=== PATIENT | female | born 1930 | race Caucasian/White ===

== ENCOUNTER 2016-05-15 19:20 | Emergency (ER) | payer MEDICARE, BC ==
[2016-05-15 20:30] LABS: Hematocrit 36 % (35-47); Hemoglobin 12.2 g/dl (12.0-16.0); Mean Corpuscular HGB Conc 34 g/dl (31-36); Mean Corpuscular Hemoglobin 31 pg (27-31); Mean Corpuscular Volume 93 fL (80-97); Mean Platelet Volume 7 um3 (7.4-10.4); Red Blood Count 3.91 10^6/ul (4.0-5.4); Red Cell Distribution Width 13 % (10.5-15); White Blood Count 6.9 10^3/ul (3.5-10.8)
--- NOTE | 2016-05-15 20:33 | ED ---
Neftali Pierce Erika, scribed for Jorge Alexander MD on 05/15/16 at 1922 . Complex/Multi-Sys Presentation - HPI Summary HPI Summary: Patient is an 85-year-old female BIBA to the ED with a CC of possible hyponatremia. Pt lives at [facility], and the doctor there stated that patient had a sodium level of 122, so sent her to the ED. Per [facility], pt intermittently had AMS today. EMS reports that patient was asymptomatic when they arrived, but became increasingly lethargic en route. They report that patient uses 2L home O2 , but was 90-96% on 2L en route so EMS increased O2 to 4L. Patient currently denies feeling sick, but states she feels "uneasy." She states she has been eating today. Pt reports pain in both shoulders, unchanged from baseline. hx scapula and femur Fx years ago with residual pain. - History Of Current Complaint Time Seen by Provider: 05/15/16 19:20 Hx Obtained From: Patient Onset/Duration: Gradual Onset, Lasting Hours, Still Present Timing: Constant Severity Currently: Moderate Associated Signs And Symptoms: Positive: Other - lethargic - Allergies/Home Medications Allergies/Adverse Reactions: Allergies Allergy/AdvReac Type Severity Reaction Status Date / Time Codeine Allergy Intermediate Anxiety Verified 03/22/15 12:17 Sulfa Drugs Allergy Intermediate Blisters Verified 03/22/15 12:17 Adhesive Tape Allergy Mild Rash Verified 03/22/15 12:17 Penicillin G Allergy Mild Rash Verified 03/22/15 12:17 Ibuprofen Allergy Unknown Unknown Verified 03/22/15 12:17 Reaction Details PMH/Surg Hx/FS Hx/Imm Hx Endocrine/Hematology History: Reports: Hx Thyroid Disease Denies: Hx Sickle Cell Disease Cardiovascular History: Reports: Hx Hypercholesterolemia, Hx Hypertension, Other Cardiovascular Problems/Disorders - Aortic Stenosis Respiratory History: Reports: Hx Asthma - ROUTINE INHALER Denies: Other Respiratory Problems/Disorders History: Denies: Other Problems/Disorders Musculoskeletal History: Reports: Hx Arthritis, Hx Bursitis - HX OF, Hx Tendonitis - HX OF, Other Musculoskeletal History - Pt uses wheelchair Sensory History: Reports: Hx Cataracts - LUCERO, Hx Contacts or Glasses - READING GLASSES, Hx Glaucoma - Hx of Denies: Hx Hearing Aid Opthamlomology History: Reports: Hx Cataracts - LUCERO, Hx Contacts or Glasses - READING GLASSES, Hx Glaucoma - Hx of Neurological History: Reports: Other Neuro Impairments/Disorders - FIBROMYALGIA Psychiatric History: Reports: Hx Anxiety - ON MEDICATION FOR, Hx Depression - Surgical History Surgery Procedure, Year, and Place: BILATERAL CARPAL TUNNEL SURGERY- 1987. GLAUCOMA - 2001. GALLBLADDER - 2002. LEFT SHOULDER - 2010. RIGHT SHOULDER- 2011-[facility]. RIGHT ELBOW 02/15/15, [facility]. RIGHT SHOULDER- 2012-[facility]. R Knee Hx Anesthesia Reactions: No - Family History Known Family History: Positive: Other - [place] - Social History [facility]: [facility] Alcohol Use: None Hx Substance Use: No Substance Use Type: Reports: None Hx Tobacco Use: No Smoking Status (MU): Never Smoked Tobacco Have You Smoked in the Last Year: No Review of Systems Constitutional: Other - hyponatremia Positive: Fatigue Positive: Myalgia - bilateral shoulders Neurological: Other - Intermittent AMS per Amelia All Other Systems Reviewed And Are Negative: Yes Physical Exam Triage Information Reviewed: Yes Vital Signs On Initial Exam: Initial Vital Signs Temp 97.7 F 05/15/16 19:25 Pulse 96 05/15/16 19:25 Resp 18 05/15/16 19:25 BP 158/63 05/15/16 19:25 Pulse Ox 97 05/15/16 19:25 Vital Signs Reviewed: Yes Appearance: Positive: Well-Appearing, No Pain Distress Skin: Positive: Warm Eyes: Positive: EOMI, JAVED ENT: Positive: Hearing grossly normal Neck: Positive: Supple Respiratory/Lung Sounds: Positive: Clear to Auscultation, Breath Sounds Present Cardiovascular: Positive: RRR Abdomen Description: Positive: Nontender, No Organomegaly, Soft Bowel Sounds: Positive: Present Musculoskeletal: Positive: Strength/ROM Intact Neurological: Positive: Sensory/Motor Intact, Alert, Oriented to Person Place, Time Psychiatric: Positive: Affect/Mood Appropriate Diagnostics - Vital Signs Vital Signs Temp Pulse Resp BP Pulse Ox 05/15/16 19:25 97.7 F 96 18 158/63 97 - Laboratory Lab Results: Lab Results 05/15/16 Range/Units 20:20 WBC 6.9 (3.5-10.8) 10^3/ul RBC 3.91 L (4.0-5.4) 10^6/ul Hgb 12.2 (12.0-16.0) g/dl Hct 36 (35-47) % MCV 93 (80-97) fL MCH 31 (27-31) pg MCHC 34 (31-36) g/dl RDW 13 (10.5-15) % Plt Count 223 (150-450) 10^3/ul MPV 7 L (7.4-10.4) um3 Neut % (Auto) 64.9 (38-83) % Lymph % (Auto) 19.6 L (25-47) % Summers % (Auto) 11.8 H (1-9) % Eos % (Auto) 3.3 (0-6) % Baso % (Auto) 0.4 (0-2) % Absolute Neuts (auto) 4.5 (1.5-7.7) 10^3/ul Absolute Lymphs (auto) 1.4 (1.0-4.8) 10^3/ul Absolute Monos (auto) 0.8 (0-0.8) 10^3/ul Absolute Eos (auto) 0.2 (0-0.6) 10^3/ul Absolute Basos (auto) 0 (0-0.2) 10^3/ul Absolute Nucleated RBC 0 10^3/ul Nucleated RBC % 0 Result Diagrams: 05/15/16 20:20 05/15/16 20:20 Lab Statement: Any lab studies that have been ordered have been reviewed, and results considered in the medical decision making process. - Radiology CXR Radiology Interpretation Completed By: Radiologist - Report: Severe obesity limits assessment. Low lung volumes with crowding of the pulmonary markings/ subsegmental atelectasis. Linear atelectasis at the LEFT lung base. Grossly clear pleural spaces. Negative for pneumothorax. Cardiomegaly. Unremarkable central pulmonary vasculature. Bilateral shoulder prostheses. IMPRESSION: Low lung volumes for this patient with subsegmental atelectasis. Cardiomegaly without compelling evidence for pulmonary edema. - EKG 19:55 Cardiac Rate: NL - at 84 bpm EKG Rhythm: Sinus Rhythm ST Segment: Non-Specific Re-Evaluation - Re-Evaluation First Eval Re-Evaluation Time: 21:48 Change: Improved Comment: Discussed lab results and discharge Complex Multi-Symp Course/Dx Assessment/Plan: An 85 y/o F presents to the ED with a CC of possible hyponatremia, per doctor at [facility]. Blood work reveals a sodium of 126. CXR shows low lung volumes for this patient with subsegmental atelectasis and cardiomegaly without compelling evidence for pulmonary edema. EKG shows NSR with non-specific ST changes. Patient will be discharged back to [facility]. - Diagnoses Provider Diagnoses: Hyponatremia Discharge - Discharge Plan Condition: Stable Disposition: HOME Patient Education Materials: Hyponatremia (ED) Referrals: Jenaro Byrd MD [Primary Care Provider] - Additional Instructions: Please follow up with your PCP The documentation as recorded by the Neftali gomez Erika accurately reflects the service I personally performed and the decisions made by , Jorge Alexander MD.
[2016-05-15 20:46] LABS: Troponin I 0.01 ng/mL (<0.04)
--- NOTE | 2016-05-15 20:50 | RAD ---
Indication: Altered mental status, weakness. Respiratory disease/asthma. Comparison: April 12, 2013 Technique: Sitting AP and lateral chest views. Report: Severe obesity limits assessment. Low lung volumes with crowding of the pulmonary markings/subsegmental atelectasis. Linear atelectasis at the LEFT lung base. Grossly clear pleural spaces. Negative for pneumothorax. Cardiomegaly. Unremarkable central pulmonary vasculature. Bilateral shoulder prostheses. IMPRESSION: Low lung volumes for this patient with subsegmental atelectasis. Cardiomegaly without compelling evidence for pulmonary edema.
[2016-05-15 20:55] LABS: Albumin 3.9 g/dL (3.2-5.2); BUN/Creatinine Ratio 30.2 (8-20); Calcium 9.3 mg/dL (8.6-10.3); EGFR Non-African American 109.6 (>60); Potassium 4.5 mmol/L (3.5-5.0); Total Bilirubin 0.2 mg/dL (0.2-1.0); Total Protein 6.9 g/dL (6.4-8.9)
[2016-05-15 21:11] LABS: Urine Bacteria Absent (Absent); Urine Bilirubin Negative (Negative); Urine Glucose Negative (Negative); Urine Nitrite Negative (Negative)
[2016-05-15 21:24] LABS: Magnesium 1.9 mg/dL (1.9-2.7)
[2016-05-15 22:57] VITALS: BP 123/59
== END 2016-05-15 23:03 | disposition home or self-care (01) ==
LOC: ED 19:20
DX: E87.1 Hypo-osmolality and hyponatremia (principal); J45.909 Unspecified asthma, uncomplicated; F41.9 Anxiety disorder, unspecified; E78.00 Pure hypercholesterolemia, unspecified; I10 Essential (primary) hypertension; I35.0 Nonrheumatic aortic (valve) stenosis; Z88.5 Allergy status to narcotic agent; Z88.0 Allergy status to penicillin; Z88.2 Allergy status to sulfonamides
CPT/HCPCS: 36415; 71020; 80053; 81003; 81015; 83735; 83880; 84484; 85025; 87086; 93005; 99282

== ENCOUNTER 2016-06-30 16:29 | Inpatient (IN) | payer MEDICARE, BC ==
[2016-06-30] MEDS ORDERED: Diltiazem IV* 5 MG/ML 5 ML VIAL (for loading dose/IV Push) (25 MG) IV SLOW PU ONE (17:06)
[2016-06-30] MEDS ORDERED: Diltiazem IV VIAL* 125 MG in D5W 100 ML BAG* 100 ML IV ONE (17:10)
[2016-06-30 17:27] LABS: FIO2 100
[2016-06-30 17:31] LABS: PCO2 Arterial 72 mmHg (35-45)
[2016-06-30 17:39] LABS: Hematocrit 35 % (35-47); Hemoglobin 11.9 g/dl (12.0-16.0); Mean Corpuscular HGB Conc 34 g/dl (31-36); Mean Corpuscular Hemoglobin 31 pg (27-31); Mean Corpuscular Volume 91 fL (80-97); Mean Platelet Volume 8 um3 (7.4-10.4); Red Blood Count 3.86 10^6/ul (4.0-5.4); Red Cell Distribution Width 13 % (10.5-15); White Blood Count 8.1 10^3/ul (3.5-10.8)
[2016-06-30 17:51] LABS: Albumin 3.5 g/dL (3.2-5.2); BUN/Creatinine Ratio 30.2 (8-20); Calcium 8.5 mg/dL (8.6-10.3); EGFR African American 179.5 (>60); EGFR Non-African American 139.6 (>60); Globulin 2.7 g/dL (2-4); Potassium 4.3 mmol/L (3.5-5.0); Total Bilirubin 0.3 mg/dL (0.2-1.0); Total Protein 6.2 g/dL (6.4-8.9)
[2016-06-30 17:57] LABS: Troponin I 0.07 ng/mL (<0.04)
--- NOTE | 2016-06-30 17:59 | RAD ---
Indication: Pneumonia, CHF. Single frontal view of the chest performed at 1710 hours was reviewed. Comparison is made with previous exam dated May 15, 2016. Cardiomegaly. No mediastinal shift is noted. Bilateral shoulder replacement. Poor inspiratory effort. IMPRESSION: NO ACTIVE CARDIOPULMONARY DISEASE IS NOTED.
[2016-06-30] MEDS ORDERED: Iohexol 350* (CONTRAST) 500 ML MDV IV ONE (18:05)
--- NOTE | 2016-06-30 18:53 | RAD ---
Indication: Atrial fibrillation, shortness of breath. Contrast: Administered 64.3 ml of OMNIPAQUE 350 mg/ml CTA of the chest was performed after IV contrast administration. Coronal and sagittal reconstructed images were obtained. The pulmonary arterial tree is well opacified. There are no filling defects present to suggest pulmonary embolus. Aorta demonstrates no evidence of aortic dissection. Atherosclerosis is noted with multiple levels of intimal calcifications. The trachea and major bronchi appear patent. The lung hoffman demonstrate dependent changes with bibasilar atelectasis. No evidence of alveolar consolidation is noted. The visualized abdominal organs are grossly unremarkable. No abnormal masses or fluid collections are identified. IMPRESSION: No evidence of pulmonary embolus is noted. Bibasilar atelectasis.
--- NOTE | 2016-06-30 20:04 | ED ---
I, DoctorPadmini, scribed for Curt Guillen MD on 06/30/16 at 1656 . Shortness of Breath - HPI Summary HPI Summary: 85 year old female brought to [facility] by EMS c/o SOB for the past few days. Pt indicates that her SOB is worse when sitting up; she has also been experiencing photophobia. She denies any CP, cough, fever, or difficulty speaking. She also has increased swelling in her legs that is not significantly different than baseline; pt denies any leg pain. She has PMHx of aortic stenosis and COPD; she uses oxygen constantly at home (2L). She has no PMHx of blood clots. - History of Current Complaint Chief Complaint: EDRespiratoryDistress Time Seen by Provider: 06/30/16 16:50 Hx Obtained From: Patient Onset/Duration: Gradual Onset Current Severity: Moderate Alleviating Factors: Upright Position - Allergy/Home Medications Allergies/Adverse Reactions: Allergies Allergy/AdvReac Type Severity Reaction Status Date / Time Codeine Allergy Intermediate Anxiety Verified 03/22/15 12:17 Sulfa Drugs Allergy Intermediate Blisters Verified 03/22/15 12:17 Adhesive Tape Allergy Mild Rash Verified 03/22/15 12:17 Penicillin G Allergy Mild Rash Verified 03/22/15 12:17 Ibuprofen Allergy Unknown Unknown Verified 03/22/15 12:17 Reaction Details Home Medications: Home Medications Acetaminophen TAB* [Tylenol TAB*] 650 mg PO DAILY@0630 PRN 06/30/16 [History Confirmed 06/30/16] Atorvastatin* [Lipitor*] 20 mg PO BEDTIME 06/30/16 [History Confirmed 06/30/16] Betaxolol-S 0.25%* [Betoptic-S 0.25%*] 1 drop BOTH EYES BID 06/30/16 [History Confirmed 06/30/16] Budesonide NEB* [Pulmicort NEB*] 0.25 mg INH BEDTIME 06/30/16 [History Confirmed 06/30/16] Cyclobenzaprine TAB* [Flexeril 10 MG TAB*] 5 mg PO BID PRN 06/30/16 [History Confirmed 06/30/16] Ferrous Sulfate TAB* 325 mg PO DAILY 06/30/16 [History Confirmed 06/30/16] Latanoprost 0.005%* [Xalatan 0.005%*] 1 drop BOTH EYES BEDTIME 06/30/16 [ History Confirmed 06/30/16] LoraTADine TAB(NF) [Claritin 10 MG TAB(NF)] 10 mg PO DAILY 06/30/16 [History Confirmed 06/30/16] Magnesium Hydroxide LIQ* [Milk of Magnesia LIQ*] 30 ml PO DAILY PRN 06/30/16 [ History Confirmed 06/30/16] Metoprolol Succinate XL TAB* [Toprol XL TAB*] 25 mg PO DAILY 06/30/16 [History Confirmed 06/30/16] Saline NASAL SPRAY 0.65%* [Sodium Chloride 0.65% Nasal [place]*] 2 spray BOTH NARES TID 06/30/16 [History Confirmed 06/30/16] Torsemide TAB* [Demadex*] 20 mg PO ONCE PRN 06/30/16 [History Confirmed 06/30/16 ] guaiFENesin ER TAB [Mucinex*] 600 mg PO BID 06/30/16 [History Confirmed 06/30/16 ] PMH/Surg Hx/FS Hx/Imm Hx Endocrine/Hematology History: Reports: Hx Thyroid Disease Denies: Hx Sickle Cell Disease Cardiovascular History: Reports: Hx Hypercholesterolemia, Hx Hypertension, Other Cardiovascular Problems/Disorders - Aortic Stenosis Respiratory History: Reports: Hx Asthma - ROUTINE INHALER Denies: Other Respiratory Problems/Disorders History: Denies: Other Problems/Disorders Musculoskeletal History: Reports: Hx Arthritis, Hx Bursitis - HX OF, Hx Tendonitis - HX OF, Other Musculoskeletal History - Pt uses wheelchair Sensory History: Reports: Hx Cataracts - LUCERO, Hx Contacts or Glasses - READING GLASSES, Hx Glaucoma - Hx of Denies: Hx Hearing Aid Opthamlomology History: Reports: Hx Cataracts - LUCERO, Hx Contacts or Glasses - READING GLASSES, Hx Glaucoma - Hx of Neurological History: Reports: Other Neuro Impairments/Disorders - FIBROMYALGIA Psychiatric History: Reports: Hx Anxiety - ON MEDICATION FOR, Hx Depression - Surgical History Surgery Procedure, Year, and Place: BILATERAL CARPAL TUNNEL SURGERY- 1987. GLAUCOMA - 2001. GALLBLADDER - 2002. LEFT SHOULDER - 2010. RIGHT SHOULDER- 2011-[facility]. RIGHT ELBOW 02/15/15, [facility]. RIGHT SHOULDER- 2012-[facility]. R Knee Hx Anesthesia Reactions: No Infectious Disease History: No Infectious Disease History: Denies: Traveled Outside the [place] in Last 30 Days - Family History Known Family History: Positive: Other - [place] - Social History Occupation: Retired Lives: Assisted Living - [facility] Alcohol Use: None Hx Substance Use: No Substance Use Type: Reports: None Hx Tobacco Use: No Smoking Status (MU): Never Smoked Tobacco Have You Smoked in the Last Year: No Review of Systems Negative: Fever Positive: Photophobia Negative: Chest Pain Positive: Shortness Of Breath. Negative: Cough Positive: Edema - bilateral lower extremity edema. Negative: Myalgia - no leg pain All Other Systems Reviewed And Are Negative: Yes Physical Exam - Summary Physical Exam Summary: General appearance: well appearing, NAD, normal development, good nutrition, normal body habitus, well groomed HEENT: normocephalic, atraumatic, ears and nose without masses or lesions, both TMs okay, dry oral mucosa, photophobia, no rhinorrhea Neck: symmetric without masses or tracheal deviation, no thyromegaly, no neck vein distention Chest: moderate SOB, intercostal retractions Cardiovascular: good color, warmth, and capillary refill in extremities (2s), good pulses distally, marked edema on lower extremities, right thigh swollen and hard, increased skin turgor; tachycardic, irregular beat, no carotid bruit Skin: no visible rashes, lesions, or ulcers, no cyanosis Neurological/Psychiatric: good fine motor coordination, sensation intact to light touch distally, cranial nerves II-XII grossly intact, appropriate judgment and insight, oriented to time, place and person, normal mood and affect Triage Information Reviewed: Yes Vital Signs On Initial Exam: Initial Vitals Temp Pulse Resp BP Pulse Ox 97.5 F 141 30 153/99 99 06/30/16 16:44 06/30/16 16:44 06/30/16 16:44 06/30/16 16:44 06/30/16 16:44 Vital Signs Reviewed: Yes Diagnostics - Vital Signs Vital Signs Temp Pulse Resp BP Pulse Ox 06/30/16 16:44 97.5 F 141 30 153/99 99 - Laboratory Lab Results: (17:19) Troponin I - 0.07 Result Diagrams: 06/30/16 17:19 06/30/16 17:19 Lab Statement: Any lab studies that have been ordered have been reviewed, and results considered in the medical decision making process. - Radiology CXR Radiology Interpretation Completed By: Radiologist - IMPRESSION: NO ACTIVE CARDIOPULMONARY DISEASE IS NOTED. - CT Chest/Thorax CTA CT Interpretation Completed By: Radiologist - IMPRESSION: No evidence of pulmonary embolus is noted. Bibasilar atelectasis. - EKG 1659 Cardiac Rate: Tachycardia - 144 bpm EKG Rhythm: Atrial Fibrillation EKG Interpretation: AFib with rapid ventricular response Re-Evaluation - Re-Evaluation First Eval Re-Evaluation Time: 17:17 Change: Unchanged Comment: Discussed EKG results and plan for treatment with pt and daughter; CXR Pending, CTA Chest ordered to r/o PE Second Eval Re-Evaluation Time: 19:02 Change: Unchanged - Discussed CTA results and treatment options with pt Course/Dx - Diagnoses Differential Diagnosis/HQI/PQRI: Positive: CHF, COPD Exacerbation, ND, Pulmonary Embolism, Other - new onset a-fb, hyponatremia Provider Diagnoses: Acute dyspnea, COPD exacerbation, Hyponatremia, Atrial fibrillation with RVR - Physician Notifications Discussed Care of Patient With: 19:40 - Discussed care of pt with Dr. Tripathi (Hospitalist), he agrees to see pt and admit her. - Critical Care Time Critical Care Time: 30-74 min - 30 minutes Discharge - Discharge Plan Condition: Guarded Disposition: ADMITTED TO [facility] Referrals: Jenaro Byrd MD [Primary Care Provider] - The documentation as recorded by the Doctor gomez Tahera accurately reflects the service I personally performed and the decisions made by , Curt Guillen MD.
--- NOTE | 2016-06-30 20:17 | HP ---
H&P (Free Text) History and Physical: PCP: Barak Byrd MD Date/Time of Evaluation: 06/30/2016 1930 CC: SOB HPI: Mrs Prabhakar is an 85YO female resident of [facility], mod , hypothyroidism who experienced an episode of SOB yesterday which was able to be controlled, but again today had the sudden onset of SOB which persisted prompting transfer for evaluation. She denies chest pain, F/C, palpitations, light-headedness, cough, congestion, B/U/F of urine, change in bowel patterns, earache, sore throat, or other issues. She denies history of similar. Evaluation is most notable for an ECG showing AFIB rate 144, no ischemia. Vitals were otherwise stable. She was reporting SOB despite high flow oxymask and so was placed on VapoTherm 40L 100%. Upon my evaluation, her AFIB had converted to NSR and she was able to be weaned back to an oxymask comfortably. Labs reveal a Na+ 117, troponin 0.07, & BNP of 276. ABG shows chronic compensated hypercarbia. CXR is poor inspiration, chronic cardiomegaly, no acute finding. CTA chest is negative for PE/pneumonia. 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 on minocycline 100mg x2 HS & levofloxacin 500mg HS hypoNatremia moderate aortic stenosis moderate pulmonary HTN HLD depression fibromyalgia anemia hypothyroidism COPD glaucoma Ambulatory Orders Brimonidine 0.2 % * [Alphagan P 0.2% *] 1 drop BOTH EYES BID 12/24/12 Budesonide/Formote 160/4.5(NF) [Symbicort 160/4.5 (NF)] 2 puff INH BID 12/24/12 Aspirin EC Low Dose* [Ecotrin EC Low Dose 81 MG*] 81 mg PO QAM 08/18/14 Levofloxacin TAB* [Levaquin TAB*] 500 mg PO BEDTIME 08/18/14 Levothyroxine TAB* [Synthroid 88 MCG TAB*] 88 mcg PO DAILY 08/18/14 Minocycline (NF) 200 mg PO BEDTIME 08/18/14 Multiple Vitamins W/ Minerals [Centrum] 1 tab PO DAILY 08/18/14 Pregabalin CAP(*) [Lyrica CAP(*)] 50 mg PO BID 08/18/14 Venlafaxine EXT RELEASE CAP* [Effexor Xr CAP*] 37.5 mg PO QPM 08/18/14 Venlafaxine EXT RELEASE CAP* [Effexor Xr CAP*] 75 mg PO QAM 08/18/14 Acetaminophen TAB* [Tylenol TAB*] 650 mg PO 2230 02/08/15 Acetaminophen TAB* [Tylenol TAB*] 650 mg PO 1300 PRN 03/15/15 Montelukast Sodium TAB* [Singulair 10 MG TAB*] 10 mg PO DAILY tab 03/23/15 Acetaminophen TAB* [Tylenol TAB*] 650 mg PO DAILY@0630 PRN 06/30/16 Atorvastatin* [Lipitor*] 20 mg PO BEDTIME 06/30/16 Betaxolol-S 0.25%* [Betoptic-S 0.25%*] 1 drop BOTH EYES BID 06/30/16 Budesonide NEB* [Pulmicort NEB*] 0.25 mg INH BEDTIME 06/30/16 Cyclobenzaprine TAB* [Flexeril 10 MG TAB*] 5 mg PO BID PRN 06/30/16 Ferrous Sulfate TAB* 325 mg PO DAILY 06/30/16 Latanoprost 0.005%* [Xalatan 0.005%*] 1 drop BOTH EYES BEDTIME 06/30/16 LoraTADine TAB(NF) [Claritin 10 MG TAB(NF)] 10 mg PO DAILY 06/30/16 Magnesium Hydroxide LIQ* [Milk of Magnesia LIQ*] 30 ml PO DAILY PRN 06/30/16 Metoprolol Succinate XL TAB* [Toprol XL TAB*] 25 mg PO DAILY 06/30/16 Saline NASAL SPRAY 0.65%* [Sodium Chloride 0.65% Nasal [place]*] 2 spray BOTH NARES TID 06/30/16 Torsemide TAB* [Demadex*] 20 mg PO ONCE PRN 06/30/16 guaiFENesin ER TAB [Mucinex*] 600 mg PO BID 06/30/16 Allergies Codeine Allergy (Intermediate, Verified 03/22/15 12:17) Anxiety Sulfa Drugs Allergy (Intermediate, Verified 03/22/15 12:17) Blisters Blisters in Mouth Adhesive Tape Allergy (Mild, Verified 03/22/15 12:17) Rash Penicillin G Allergy (Mild, Verified 03/22/15 12:17) Rash Ibuprofen Allergy (Unknown, Verified 03/22/15 12:17) Unknown Reaction Details PSurgHx OU catract extractions B shoulder replacements cholecystectomy hysterectomy L hip FX repair w/o replacement R knee ORIF SocHx: former smoker, no alcohol or recreational drugs; lives at [facility]; DNR /I, no feeding tube, trial fluids, use ABX; MOLST updated FamHx: positive for HTN, CAD ROS: as above, otherwise reviewed and all were negative Constitutional: NAD, normally developed, obese elderly white female vitals: Vital Signs Temp 36.4 C 06/30/16 16:44 Pulse 80 06/30/16 19:30 Resp 30 06/30/16 17:28 BP 127/86 06/30/16 19:30 Pulse Ox 99 06/30/16 19:30 Intake & Output 06/29/16 06/30/16 06/30/16 23:59 11:59 23:59 Weight 70.307 kg HEENM: atraumatic; sclera/conjunctiva: non-icteric/clear; hearing: clinically mildly decreased; oropharynx: clear, mucosa moist Neck: soft tissue: non-tender; thyroid: normal Pulmonary: clear to auscultation bilaterally, good aeration, no accessory muscle use CV: RR/RR, normal S1S2, no carotid bruit, no jugular venous distention, 2+ B DP/ PT, trace to 1+ BLE edema Abdominal: soft, non-distended, non-tender, no rebound/guarding/rigidity, normoactive bowel sounds, no hepatosplenomegaly or masses, no costovertebral angle tenderness Musculoskeletal: general: grossly intact; gait: non-ambulatory requiring 2 person assist for transfer to wheelchair Integumental: normal appearance and texture of exposed skin Psychiatric orientation: AA&O to PPS affect: calm mood: cooperative eye contact: fair content: reliable responses: timely insight: fair Testing: Lab Results 06/30/16 06/30/16 06/30/16 Range/Units 16:38 17:19 17:19 WBC 8.1 (3.5-10.8) 10^3/ul RBC 3.86 L (4.0-5.4) 10^6/ul Hgb 11.9 L (12.0-16.0) g/dl Hct 35 (35-47) % MCV 91 (80-97) fL MCH 31 (27-31) pg MCHC 34 (31-36) g/dl RDW 13 (10.5-15) % Plt Count 234 (150-450) 10^3/ul MPV 8 (7.4-10.4) um3 Neut % (Auto) 75.1 (38-83) % Lymph % (Auto) 13.5 L (25-47) % [place] % (Auto) 10.1 H (1-9) % Eos % (Auto) 1.1 (0-6) % Baso % (Auto) 0.2 (0-2) % Absolute Neuts (auto) 6.1 (1.5-7.7) 10^3/ul Absolute Lymphs (auto) 1.1 (1.0-4.8) 10^3/ul Absolute Monos (auto) 0.8 (0-0.8) 10^3/ul Absolute Eos (auto) 0.1 (0-0.6) 10^3/ul Absolute Basos (auto) 0 (0-0.2) 10^3/ul Absolute Nucleated RBC 0 10^3/ul Nucleated RBC % 0 INR (Anticoag Therapy) (0.89-1.11) APTT (26.0-36.3) seconds Patient Temperature ABG pH (7.35-7.45) ABG pCO2 (35-45) mmHg ABG pO2 (80-100) mmHg ABG HCO3 (19-31) mmol/L ABG O2 Saturation (95-98) % ABG Base Excess (-2.0-2.0) Respiration Rate O2 Delivery Device Ventilator Type Vent Mode FiO2 Inspiratory Time PEEP Pressure Support Pressure Control EPAP IPAP BiPAP Sodium 117 L* (133-145) mmol/L Potassium 4.3 (3.5-5.0) mmol/L Chloride 75 L (101-111) mmol/L Carbon Dioxide 39 H (22-32) mmol/L Anion Gap 3 (2-11) mmol/L BUN 13 (6-24) mg/dL Creatinine 0.43 L (0.51-0.95) mg/dL Est GFR ( Amer) 179.5 (>60) Est GFR (Non-Af Amer) 139.6 (>60) BUN/Creatinine Ratio 30.2 H (8-20) Glucose 128 H (70-100) mg/dL Lactic Acid (0.5-2.0) mmol/L Calcium 8.5 L (8.6-10.3) mg/dL Total Bilirubin 0.30 (0.2-1.0) mg/dL AST 19 (13-39) U/L ALT 11 (7-52) U/L Alkaline Phosphatase 35 (34-104) U/L Total Creatine Kinase 90 (10-223) U/L Troponin I 0.07 H* (<0.04) ng/mL B-Natriuretic Peptide ( - 100) pg/mL Total Protein 6.2 L (6.4-8.9) g/dL Albumin 3.5 (3.2-5.2) g/dL Globulin 2.7 (2-4) g/dL Albumin/Globulin Ratio 1.3 (1-3) Influenza A (Rapid) Negative (Negative) Influenza B (Rapid) Negative (Negative) 06/30/16 06/30/16 06/30/16 Range/Units 17:19 17:19 17:19 WBC (3.5-10.8) 10^3/ul RBC (4.0-5.4) 10^6/ul Hgb (12.0-16.0) g/dl Hct (35-47) % MCV (80-97) fL MCH (27-31) pg MCHC (31-36) g/dl RDW (10.5-15) % Plt Count (150-450) 10^3/ul MPV (7.4-10.4) um3 Neut % (Auto) (38-83) % Lymph % (Auto) (25-47) % [place] % (Auto) (1-9) % Eos % (Auto) (0-6) % Baso % (Auto) (0-2) % Absolute Neuts (auto) (1.5-7.7) 10^3/ul Absolute Lymphs (auto) (1.0-4.8) 10^3/ul Absolute Monos (auto) (0-0.8) 10^3/ul Absolute Eos (auto) (0-0.6) 10^3/ul Absolute Basos (auto) (0-0.2) 10^3/ul Absolute Nucleated RBC 10^3/ul Nucleated RBC % INR (Anticoag Therapy) 0.90 (0.89-1.11) APTT 30.0 (26.0-36.3) seconds Patient Temperature ABG pH (7.35-7.45) ABG pCO2 (35-45) mmHg ABG pO2 (80-100) mmHg ABG HCO3 (19-31) mmol/L ABG O2 Saturation (95-98) % ABG Base Excess (-2.0-2.0) Respiration Rate O2 Delivery Device Ventilator Type Vent Mode FiO2 Inspiratory Time PEEP Pressure Support Pressure Control EPAP IPAP BiPAP Sodium (133-145) mmol/L Potassium (3.5-5.0) mmol/L Chloride (101-111) mmol/L Carbon Dioxide (22-32) mmol/L Anion Gap (2-11) mmol/L BUN (6-24) mg/dL Creatinine (0.51-0.95) mg/dL Est GFR ( Amer) (>60) Est GFR (Non-Af Amer) (>60) BUN/Creatinine Ratio (8-20) Glucose (70-100) mg/dL Lactic Acid 0.6 (0.5-2.0) mmol/L Calcium (8.6-10.3) mg/dL Total Bilirubin (0.2-1.0) mg/dL AST (13-39) U/L ALT (7-52) U/L Alkaline Phosphatase (34-104) U/L Total Creatine Kinase (10-223) U/L Troponin I (<0.04) ng/mL B-Natriuretic Peptide 276 H ( - 100) pg/mL Total Protein (6.4-8.9) g/dL Albumin (3.2-5.2) g/dL Globulin (2-4) g/dL Albumin/Globulin Ratio (1-3) Influenza A (Rapid) (Negative) Influenza B (Rapid) (Negative) 06/30/16 Range/Units 17:25 WBC (3.5-10.8) 10^3/ul RBC (4.0-5.4) 10^6/ul Hgb (12.0-16.0) g/dl Hct (35-47) % MCV (80-97) fL MCH (27-31) pg MCHC (31-36) g/dl RDW (10.5-15) % Plt Count (150-450) 10^3/ul MPV (7.4-10.4) um3 Neut % (Auto) (38-83) % Lymph % (Auto) (25-47) % [place] % (Auto) (1-9) % Eos % (Auto) (0-6) % Baso % (Auto) (0-2) % Absolute Neuts (auto) (1.5-7.7) 10^3/ul Absolute Lymphs (auto) (1.0-4.8) 10^3/ul Absolute Monos (auto) (0-0.8) 10^3/ul Absolute Eos (auto) (0-0.6) 10^3/ul Absolute Basos (auto) (0-0.2) 10^3/ul Absolute Nucleated RBC 10^3/ul Nucleated RBC % INR (Anticoag Therapy) (0.89-1.11) APTT (26.0-36.3) seconds Patient Temperature Not Reportable ABG pH 7.38 (7.35-7.45) ABG pCO2 72 H* (35-45) mmHg ABG pO2 387 H (80-100) mmHg ABG HCO3 36.2 H (19-31) mmol/L ABG O2 Saturation 100.0 H (95-98) % ABG Base Excess 14.4 H (-2.0-2.0) Respiration Rate Not Reportable O2 Delivery Device Vapotherm Ventilator Type Not Reportable Vent Mode Not Reportable FiO2 100 Inspiratory Time Not Reportable PEEP Not Reportable Pressure Support Not Reportable Pressure Control Not Reportable EPAP Not Reportable IPAP Not Reportable BiPAP Not Reportable Sodium (133-145) mmol/L Potassium (3.5-5.0) mmol/L Chloride (101-111) mmol/L Carbon Dioxide (22-32) mmol/L Anion Gap (2-11) mmol/L BUN (6-24) mg/dL Creatinine (0.51-0.95) mg/dL Est GFR ( Amer) (>60) Est GFR (Non-Af Amer) (>60) BUN/Creatinine Ratio (8-20) Glucose (70-100) mg/dL Lactic Acid (0.5-2.0) mmol/L Calcium (8.6-10.3) mg/dL Total Bilirubin (0.2-1.0) mg/dL AST (13-39) U/L ALT (7-52) U/L Alkaline Phosphatase (34-104) U/L Total Creatine Kinase (10-223) U/L Troponin I (<0.04) ng/mL B-Natriuretic Peptide ( - 100) pg/mL Total Protein (6.4-8.9) g/dL Albumin (3.2-5.2) g/dL Globulin (2-4) g/dL Albumin/Globulin Ratio (1-3) Influenza A (Rapid) (Negative) Influenza B (Rapid) (Negative) ECG, personally reviewed: AFIB rate 144, no ischemia CXR, personally reviewed: IMPRESSION: NO ACTIVE CARDIOPULMONARY DISEASE IS NOTED. CTA chest, personally reviewed: IMPRESSION: No evidence of pulmonary embolus is noted. Bibasilar atelectasis. ECHO (03/22/2015): Conclusions: The study is technically limited due to poor parasternal windows. There is normal left ventricular systolic function. The estimated ejection fraction is 55-60%. The left ventricular diastolic filling pattern is consistent with pseudonormalization. The lack of left atrial enlargement suggests this finding may not have clinical significance. There is mild aortic regurgitation. There is moderate aortic stenosis.By continuity equation. Mean gradient suggests mild to moderate. 2D imaging suboptimal but suggests the leaflets have mild restriction to opening. There is mild to moderate mitral regurgitation. There is mild tricuspid regurgitation. There is evidence of moderate pulmonary hypertension. There is mild to moderate pulmonic regurgitation. The study is technically limited due to poor parasternal windows. There is normal left ventricular systolic function. The estimated ejection fraction is 55-60%. There is mild aortic regurgitation. There is moderate aortic stenosis.By continuity equation. Mean gradient suggests mild to moderate. 2D imaging suboptimal but suggests the leaflets have mild restriction to opening. There is mild to moderate mitral regurgitation. There is mild tricuspid regurgitation. There is evidence of moderate pulmonary hypertension. No prior study for comparison. Impression: 85F HX COPD presents w/ SOB 2nd new onset AFIB/RVR DIAGNOSIS & PLAN Primary AFIB/RVR, new onset : converted to NSR currently : [id number] core: 4 : heparin GTT : increase metoprolol XL to 50mg daily : no need to update ECHO : supplemental oxygen cautiously give baseline compensated hypercarbia : supportive care hypoNatremia : ? etiology : no IVFs 2nd elevated BNP : trial of furosemide to remove free water & trend COPD, not in exacerbation : continue budesonide/formoterol, montelukast, budesonide neb : albuterol nebs PRN : tiotropium : incentive spirometry : close monitoring & aggressive weaning of oxygen to hopefully avoid hypercarbic decompensation elevated troponin : suspect demand ischemia : telemetry : trend : heparin GTT for AFIB, takes aspirin daily Secondary CHF : continue torsemide ischemic cardiomyopathy : continue aspirin non-union R humerus FX : pain control chronic R shoulder prosthesis infection : continue minocycline 100mg x2 HS & levofloxacin 500mg HS : continue cyclobenzaprine moderate aortic stenosis : cautious use of IVFs/diuretics moderate pulmonary HTN HLD : continue atorvastatin depression : continue venlafaxine fibromyalgia : continue pregabalin anemia : continue ferrous sulfate hypothyroidism : continue levothyroxine glaucoma : continue brimonidine, betaxolol, & latanoprost Admission Rational: CDU observation for new onset AFIB/RVR DVTp: heparin GTT Code Status: DNR/I, MOLST updated HCP: daughter, Abril
[2016-06-30] MEDS ORDERED: Cyclobenzaprine TAB* 10 MG PO PRN (21:29)
[2016-06-30] MEDS ORDERED: Torsemide TAB* 20 MG PO PRN (21:29)
[2016-06-30] MEDS ORDERED: Magnesium Hydroxide LIQ* 30 ML UDC PO PRN (21:29)
[2016-06-30] MEDS ORDERED: Albuterol 2.5 MG/3 ML NEB.SOL* (0.083%) INH PRN (21:54)
[2016-06-30] MEDS ORDERED: Melatonin (NF) 3 MG TAB PO PRN (21:54)
[2016-06-30] MEDS ORDERED: Ondansetron INJ* 2 MG/ML VIAL IV PRN (21:56)
[2016-06-30] MEDS ORDERED: Furosemide IV* 10 MG/ML VIAL (40 MG) IV ONE (21:58)
[2016-06-30] MEDS ORDERED: Heparin DRIP 25,000 UNITS(*) 25,000 UNITS/500 ML BAG IVPB SCH (22:00)
[2016-06-30] MEDS ORDERED: Heparin VIAL(*) 5000 UNITS/ML VIAL (FIVE THOUSAND) IV PRN (22:09)
[2016-06-30] MEDS: Acetaminophen TAB* 325 MG PO PRN (22:55)
[2016-06-30] MEDS: Levofloxacin TAB* 500 MG PO SCH (22:55)
[2016-06-30] MEDS: Metoprolol Succinate XL TAB* 50 MG PO SCH (22:56)
[2016-07-01] MEDS: Albuterol 2.5 MG/3 ML NEB.SOL* (0.083%) INH SCH ×4 (01:39→19:39)
[2016-07-01] MEDS: ALPRAZolam TAB* 0.25 MG PO PRN ×2 (02:03→21:30)
[2016-07-01] MEDS: Acetaminophen TAB* 325 MG PO PRN (05:45)
[2016-07-01] MEDS: Levothyroxine TAB* 88 MCG TAB PO SCH (05:49)
[2016-07-01] MEDS: Omeprazole CAP* 20 MG PO SCH (05:49)
[2016-07-01 06:36] LABS: BUN/Creatinine Ratio 21.4 (8-20); Calcium 8.1 mg/dL (8.6-10.3); EGFR African American 184.4 (>60); EGFR Non-African American 143.4 (>60); Potassium 3.5 mmol/L (3.5-5.0)
[2016-07-01 06:50] LABS: Troponin I 0.08 ng/mL (<0.04)
[2016-07-01] MEDS: Tiotropium CAP.INH* CAP.INH/18 MCG INH SCH (07:29)
[2016-07-01] MEDS: Mometasone/Formoter 200/5 MDI INH SCH ×2 (07:30→19:47)
[2016-07-01] MEDS: Montelukast Sodium TAB* 10 MG PO SCH (08:06)
[2016-07-01] MEDS: Docusate CAP* 100 MG PO SCH ×2 (08:06→20:38)
[2016-07-01] MEDS: guaiFENesin ER TAB 600 MG PO SCH ×2 (08:07→20:38)
[2016-07-01] MEDS: Pregabalin CAP(*) 50 MG PO SCH ×2 (08:07→20:38)
[2016-07-01] MEDS: Betaxolol-S 0.25%* 10 ML BTL BOTH EYES SCH ×2 (08:07→20:39)
[2016-07-01] MEDS: Metoprolol Succinate XL TAB* 50 MG PO SCH (08:07)
[2016-07-01] MEDS: Ferrous Sulfate TAB* 325 MG PO SCH (08:07)
[2016-07-01] MEDS: Saline NASAL SPRAY 0.65%* BTL BOTH NARES SCH ×3 (08:12→20:39)
[2016-07-01] MEDS ORDERED: Aspirin EC Low Dose* 81 MG TAB.EC PO SCH (09:00)
[2016-07-01] MEDS ORDERED: Venlafaxine EXT RELEASE CAP* 75 MG PO SCH (09:00)
[2016-07-01] MEDS ORDERED: Spiriva Inhaler DEVICE* 1 EACH DEVICE ONE (09:00)
[2016-07-01] MEDS ORDERED: Cetirizine* 10 MG TAB PO SCH (09:00)
--- NOTE | 2016-07-01 14:47 | PN ---
Subjective Date of Service: 07/01/16 Interval History: Patient seen and examined at bedside. Pt states that she doesn't feel well today , but her daughter would like her to get back to [facility]. Denies chest pain, N/V/ D. Pt states that she has chronic pain. Reports mild shortness of breath, "hot and cold" episodes. Pt appears to be drowsy, Per Pt's daughter Pt has been more confused over the last month or so and has had hyponatremia that had improved in the past. Discussed with Pt's daughter the different anticoagulation options, and she would like to use one of the newer medications and not Warfarin. Discussed risk of bleeding and medications with and without reversal agents. Pt's daughter would like to start with xarelto. Tele: Sinus rhythm, rate 60-70's. Family History: Unchanged from Admission Social History: Unchanged from Admission Past Medical History: Unchanged from Admission Objective Active Medications: Acetaminophen (Tylenol Tab*) 650 mg PO Q6H PRN Reason: FEVER/PAIN Albuterol (Ventolin 2.5 Mg/3 Ml Neb.Awa*) 2.5 mg INH Q2H PRN Reason: SOB/ WHEEZING Albuterol (Ventolin 2.5 Mg/3 Ml Neb.Awa*) 2.5 mg INH [id number] AWAKE LYDIA Alprazolam (Xanax Tab*) 0.25 mg PO BID PRN Reason: ANXIETY Aspirin (Aspirin Ec Low Dose*) 81 mg PO QAM LYDIA Atorvastatin Calcium (Lipitor*) 20 mg PO BEDTIME LYDIA Betaxolol HCl (Betoptic-S 0.25%*) 1 drop BOTH EYES BID LYDIA Brimonidine Tartrate (Alphagan 0.2%) 1 drop BOTH EYES BID LYDIA Budesonide (Pulmicort Neb*) 0.25 mg INH BEDTIME LYDIA Cetirizine HCl (Zyrtec*) 10 mg PO DAILY LYDIA Cyclobenzaprine HCl (Flexeril Tab*) 5 mg PO BID PRN Reason: PAIN Docusate Sodium (Colace Cap*) 200 mg PO BID LYDIA Ferrous Sulfate (Ferrous Sulfate Tab*) 325 mg PO DAILY LYDIA Guaifenesin (Mucinex*) 600 mg PO BID LYDIA Heparin Sodium (Porcine) (Heparin Vial(*)) 0 units IV .BOLUS PRN Reason: HEPARIN DRIP BOLUS Heparin Sodium/Dextrose (Heparin Drip 25,000 Units(*)) 25,000 units in 500 mls @ 0 mls/hr IVPB .(INITIAL RATE) LYDIA; Per Protocol Reason: Protocol Latanoprost (Xalatan 0.005%*) 1 drop BOTH EYES BEDTIME LYDIA Levofloxacin (Levaquin Tab*) 500 mg PO BEDTIME LYDIA Levothyroxine Sodium (Synthroid Tab*) 88 mcg PO DAILY@0600 LYDIA Magnesium Hydroxide (Milk Of Magnesia Liq*) 30 ml PO DAILY PRN Reason: CONSTIPATION Melatonin (Melatonin (Nf)) 3 mg PO BEDTIME PRN; Protocol Reason: Sleep Metoprolol Succinate (Toprol Xl Tab*) 50 mg PO DAILY LYDIA Minocycline HCl (Minocycline (Nf)) 200 mg PO BEDTIME LYDIA Mometasone Furoate/Formoterol Fumar (Dulera 200/5 Mdi*) 2 puff INH BID LYDIA Reason: Protocol Montelukast Sodium (Singulair Tab*) 10 mg PO DAILY LYDIA Omeprazole (Prilosec Cap*) 20 mg PO DAILY@0600 [facility] Ondansetron HCl (Zofran Inj*) 4 mg IV Q6H PRN Reason: NAUSEA Pregabalin (Lyrica Cap(*)) 50 mg PO BID [facility] Sodium Chloride (Sodium Chloride 0.65% Nasal [place]*) 2 spray BOTH NARES TID LYDIA Tiotropium [place] (Spiriva Cap.Inh*) 1 cap INH DAILY LYDIA Torsemide (Demadex*) 20 mg PO ONCE PRN Reason: SHORTNESS OF BREATH Venlafaxine HCl (Effexor Xr Cap*) 37.5 mg PO QPM [facility] Venlafaxine HCl (Effexor Xr Cap*) 75 mg PO QAM [facility] Vital Signs 06/30/16 06/30/16 06/30/16 19:30 19:45 20:00 Temperature Pulse Rate 80 74 72 Respiratory Rate Blood Pressure 127/86 115/98 (mmHg) O2 Sat by Pulse 99 99 99 Oximetry 06/30/16 06/30/16 06/30/16 20:15 20:30 20:45 Temperature Pulse Rate 135 43 142 Respiratory Rate Blood Pressure 137/79 159/68 (mmHg) O2 Sat by Pulse 98 99 99 Oximetry 06/30/16 06/30/16 06/30/16 21:00 22:15 22:20 Temperature 96.9 F Pulse Rate 83 55 86 Respiratory 24 Rate Blood Pressure 182/166 153/60 (mmHg) O2 Sat by Pulse 98 100 Oximetry 07/01/16 07/01/16 07/01/16 04:03 05:18 06:23 Temperature 98.1 F Pulse Rate 77 Respiratory 22 20 22 Rate Blood Pressure 133/64 (mmHg) O2 Sat by Pulse 100 Oximetry 07/01/16 07/01/16 07/01/16 07:34 07:36 08:07 Temperature 97.4 F Pulse Rate 81 82 Respiratory 20 18 20 Rate Blood Pressure 146/63 (mmHg) O2 Sat by Pulse 100 99 Oximetry 07/01/16 07/01/16 07/01/16 08:33 12:07 12:41 Temperature 98.0 F Pulse Rate 78 94 78 Respiratory 14 22 20 Rate Blood Pressure 151/63 (mmHg) O2 Sat by Pulse 97 97 99 Oximetry Oxygen Devices in Use Now: Nasal Cannula - 2 L Appearance: NAD, laying in bed Eyes: No Scleral Icterus Ears/Nose/Mouth/Throat: Mucous Membranes Moist Respiratory: Clear to Auscultation - , diminished Cardiovascular: NL Sounds; No Murmurs; No JVD, RRR Abdominal: NL Sounds; No Tenderness; No Distention Extremities: - - Trace to 1+ bilateral LE edema Neurological: - - Alert and Oriented to Person and Place. Pt is drowsy Lines/Tubes/Other Access: Clean, Dry and Intact Peripheral IV - x 2, site benign Nutrition: Taking PO's Result Diagrams: 06/30/16 17:19 07/01/16 15:18 Additional Lab and Data: (17:19) Troponin I - 0.07 Microbiology and Other Data: Microbiology 06/30/16 22:07 Nasal Screen MRSA (PCR)([id number]) - Final Nasal Mrsa Negative Assess/Plan/Problems-Billing Assessment: Ms. Prabhakar is an 85 yo female with PMH significant for CHF, ischemic cardiomyopathy, hyponatremia, and COPD who presented to the emergency room with complaints of shortness of breath and was found to be in new onset Afib with RVR. - Patient Problems (1) Atrial fibrillation with RVR Code(s): I48.91 - UNSPECIFIED ATRIAL FIBRILLATION SNOMED Code(s): 680050829199795 Comment: - Converted to NSR after cardizem in ED - [id number] score 4, Pt's daughter would like to avoid warfarin and use a NOAC - Will switch from Heparin gtt to Xarelto - Continue Metolprolol at increased dose (2) Hyponatremia Code(s): E87.1 - HYPO-OSMOLALITY AND HYPONATREMIA SNOMED Code(s): 06307976 Comment: - Unclear etiology - Minimal improvement with furosemide - TSH 05/22/16 - 0.75 - Will try fluid restriction and check a urine sodium, urine and serum osm - Will give another dose of IV lasix today as Pt appears to be Hypervolemic - Will decrease Effexor was this can cause SIADH (3) COPD (chronic obstructive pulmonary disease) Code(s): J44.9 - CHRONIC OBSTRUCTIVE PULMONARY DISEASE, UNSPECIFIED SNOMED Code(s): 77464847 Comment: - Chronic hypercarbic respiratory failure - Continue Dulera, spiriva, singulair, budesonide neb and albuterol nebs PRN - Incentive Spirometry (4) Elevated troponin Code(s): R74.8 - ABNORMAL LEVELS OF OTHER SERUM ENZYMES SNOMED Code(s): 694760470 Comment: - Denies chest discomfort - Troponin peaked at 0.09 - Suspect demand ischemia (5) CHF (congestive heart failure) Code(s): I50.9 - HEART FAILURE, UNSPECIFIED SNOMED Code(s): 16496283 Comment: - Continue torsemide PRN - Will give IV Lasix today, as patient appears to be hypervolemic (6) Ischemic cardiomyopathy Code(s): I25.5 - ISCHEMIC CARDIOMYOPATHY SNOMED Code(s): 845640810 Comment: - Continue ASA (7) Nonunion of fracture of humerus Code(s): S42.309K - UNSP FX SHAFT OF HUMERUS, UNSP ARM, SUBS FOR FX W NONUNION SNOMED Code(s): 35905384 Comment: - Chronic - Continue Pain control (8) Infection of prosthesis Code(s): T85.79XA - INFECT/INFLM REACTION DUE TO OTH INT PROSTH DEV/GRFT, INIT SNOMED Code(s): 426510622 Comment: - Chronic right shoulder prosthesis infection - Continue minocycline and levofloxacin - Continue flexeril PRN (9) Moderate aortic stenosis Code(s): I35.0 - NONRHEUMATIC AORTIC (VALVE) STENOSIS SNOMED Code(s): 27106268 Comment: - Cautious use of diuretics and IVFs (10) HLD (hyperlipidemia) Code(s): E78.5 - HYPERLIPIDEMIA, UNSPECIFIED SNOMED Code(s): 24136744 Comment: - Continue atorvastatin (11) Depression Code(s): F32.9 - MAJOR DEPRESSIVE DISORDER, SINGLE EPISODE, UNSPECIFIED SNOMED Code(s): 99188658 Comment: - Continue venlafaxine - Will discontinue the evening dose, as this may be contributing to the hyponatremia (12) Fibromyalgia Code(s): M79.7 - FIBROMYALGIA SNOMED Code(s): 766481847 Comment: - Continue pregabalin (13) Anemia Code(s): D64.9 - ANEMIA, UNSPECIFIED SNOMED Code(s): 020658974 Comment: - Continue ferrous sulfate (14) Glaucoma Code(s): H40.9 - UNSPECIFIED GLAUCOMA SNOMED Code(s): 30275118 Comment: - Continue her usual eye drops. (15) Hypothyroidism Code(s): E03.9 - HYPOTHYROIDISM, UNSPECIFIED SNOMED Code(s): 27325226 Comment: - TSH 05/22/16 - 0.75 - Continue levothyroxine. (16) DVT prophylaxis Code(s): [id number] - SNOMED Code(s): 262571591 Comment: - [place] (17) DNR (do not resuscitate) Status and Disposition: OBV to Inpatient. Discharge back to [facility] when medically stable, possibly in the morning.
[2016-07-01] MEDS: Rivaroxaban TAB(*) 20 MG TAB PO SCH (17:06)
[2016-07-01] MEDS ORDERED: Venlafaxine EXT RELEASE CAP* 37.5 MG PO SCH (18:00)
[2016-07-01] MEDS ORDERED: Furosemide IV* 10 MG/ML VIAL (40 MG) IV SLOW PU ONE (18:57)
[2016-07-01] MEDS ORDERED: Benzocaine/Menthol LOZ* 1 LOZENGE PO PRN (19:40)
[2016-07-01] MEDS: Budesonide NEB* 0.25 MG/2 ML NEB.SOLN INH SCH (19:43)
[2016-07-01] MEDS: Atorvastatin* 20 MG TAB PO SCH (20:38)
[2016-07-01] MEDS: Latanoprost 0.005%* 2.5 ml BTL BOTH EYES SCH (20:38)
[2016-07-01] MEDS: Levofloxacin TAB* 500 MG PO SCH (20:38)
[2016-07-01] MEDS: MINOCYCLINE 100 MG PO SCH (21:26)
[2016-07-02] MEDS: Albuterol 2.5 MG/3 ML NEB.SOL* (0.083%) INH SCH ×4 (01:59→19:34)
[2016-07-02 02:09] LABS: PCO2 Arterial 89 mmHg (35-45)
--- NOTE | 2016-07-02 03:10 | PN ---
Progress Note - Progress Note Note: Nursing called reporting excessive somnolence & unable to fully rouse. ABG ordered, pCO2 increased from 72 to 89, pH normal. Patient's MOLST is filled out DNI w/o the option for BiPap. Attempts to contact the HCP were unsuccessful. As such, decision was made to transfer to ICU for high flow VapoTherm to generate a low level of PEEP and attempt to reverse her hypercarbia. Will likely need CPAP nightly to prevent recurrent episodes of nocturnal decompensation. She was given 0.25mg alprazolam before bed, but this would not be expected to tip the balance.
[2016-07-02 04:57] LABS: FIO2 30
[2016-07-02 05:03] LABS: PCO2 Arterial 84 mmHg (35-45)
[2016-07-02 05:06] LABS: Hematocrit 32 % (35-47); Hemoglobin 10.9 g/dl (12.0-16.0); Mean Corpuscular HGB Conc 34 g/dl (31-36); Mean Corpuscular Hemoglobin 31 pg (27-31); Mean Corpuscular Volume 91 fL (80-97); Mean Platelet Volume 7 um3 (7.4-10.4); Red Blood Count 3.53 10^6/ul (4.0-5.4); Red Cell Distribution Width 13 % (10.5-15); White Blood Count 6.1 10^3/ul (3.5-10.8)
[2016-07-02 05:18] LABS: BUN/Creatinine Ratio 19.2 (8-20); Blood Urea Nitrogen 10 mg/dL (6-24); CO2 Carbon Dioxide 40 mmol/L (22-32); Calcium 8.2 mg/dL (8.6-10.3); Chloride 74 mmol/L (101-111); EGFR African American 144.1 (>60); EGFR Non-African American 112.1 (>60); Glucose 100 mg/dL (70-100)
[2016-07-02 05:20] LABS: Sodium 116 mmol/L (133-145)
[2016-07-02] MEDS: Omeprazole CAP* 20 MG PO SCH ×2 (05:25→14:54)
[2016-07-02] MEDS: Levothyroxine TAB* 88 MCG TAB PO SCH ×2 (05:25→16:54)
[2016-07-02 05:34] LABS: Urine Bacteria Absent (Absent); Urine Bilirubin Negative (Negative); Urine Glucose Negative (Negative); Urine Nitrite Negative (Negative)
[2016-07-02] MEDS: Mometasone/Formoter 200/5 MDI INH SCH ×2 (07:16→19:34)
[2016-07-02] MEDS: Tiotropium CAP.INH* CAP.INH/18 MCG INH SCH (07:16)
[2016-07-02] MEDS ORDERED: Sodium Chloride 3% HYPERTONIC* 250 ML IVPB ONE ×2 (08:12→09:00)
--- NOTE | 2016-07-02 08:20 | PN ---
Subjective Date of Service: 07/02/16 Interval History: Patient not alert enough to make her needs known. Family History: Unchanged from Admission Social History: Unchanged from Admission Past Medical History: Unchanged from Admission Objective Active Medications: Acetaminophen (Tylenol Tab*) 650 mg PO Q6H PRN PRN Reason: FEVER/PAIN Last Admin: 07/01/16 05:45 Dose: 650 mg Albuterol (Ventolin 2.5 Mg/3 Ml Neb.Awa*) 2.5 mg INH Q2H PRN PRN Reason: SOB/WHEEZING Albuterol (Ventolin 2.5 Mg/3 Ml Neb.Waa*) 2.5 mg INH [id number] AWAKE [facility] Last Admin: 07/02/16 07:11 Dose: 2.5 mg Alprazolam (Xanax Tab*) 0.25 mg PO BID PRN PRN Reason: ANXIETY Last Admin: 07/01/16 21:30 Dose: 0.25 mg Atorvastatin Calcium (Lipitor*) 20 mg PO BEDTIME [facility] Last Admin: 07/01/16 20:38 Dose: 20 mg Betaxolol HCl (Betoptic-S 0.25%*) 1 drop BOTH EYES BID [facility] Last Admin: 07/01/16 20:39 Dose: 1 drop Brimonidine Tartrate (Alphagan 0.2%) 1 drop BOTH EYES BID [facility] Last Admin: 07/01/16 20:38 Dose: 1 drop Budesonide (Pulmicort Neb*) 0.25 mg INH BEDTIME [facility] Last Admin: 07/01/16 19:43 Dose: 0.25 mg Cyclobenzaprine HCl (Flexeril Tab*) 5 mg PO BID PRN PRN Reason: PAIN Last Admin: 06/30/16 23:56 Dose: 5 mg Ferrous Sulfate (Ferrous Sulfate Tab*) 325 mg PO DAILY [facility] Last Admin: 07/01/16 08:07 Dose: 325 mg Guaifenesin (Mucinex*) 600 mg PO BID [facility] Last Admin: 07/01/16 20:38 Dose: 600 mg Sodium Chloride (Hypertonic) (Hypertonic Sod Chloride 3%*) 250 mls @ 0 mls/hr IVPB ONCE ONE; Per Protocol PRN Reason: Protocol Stop: 07/02/16 08:13 Latanoprost (Xalatan 0.005%*) 1 drop BOTH EYES BEDTIME [facility] Last Admin: 07/01/16 20:38 Dose: 1 drop Levofloxacin (Levaquin Tab*) 500 mg PO BEDTIME [facility] Last Admin: 07/01/16 20:38 Dose: 500 mg Levothyroxine Sodium (Synthroid Tab*) 88 mcg PO DAILY@0600 [facility] Last Admin: 07/02/16 05:25 Dose: Not Given Magnesium Hydroxide (Milk Of Magnesia Liq*) 30 ml PO DAILY PRN PRN Reason: CONSTIPATION Metoprolol Succinate (Toprol Xl Tab*) 50 mg PO DAILY [facility] Last Admin: 07/01/16 08:07 Dose: 50 mg Minocycline HCl (Minocycline (Nf)) 200 mg PO BEDTIME [facility] Last Admin: 07/01/16 21:26 Dose: Not Given Mometasone Furoate/Formoterol Fumar (Dulera 200/5 Mdi*) 2 puff INH BID [facility] PRN Reason: Protocol Last Admin: 07/02/16 07:16 Dose: Not Given Montelukast Sodium (Singulair Tab*) 10 mg PO DAILY [facility] Last Admin: 07/01/16 08:06 Dose: 10 mg Omeprazole (Prilosec Cap*) 20 mg PO DAILY@0600 [facility] Last Admin: 07/02/16 05:25 Dose: Not Given Ondansetron HCl (Zofran Inj*) 4 mg IV Q6H PRN PRN Reason: NAUSEA Rivaroxaban (Xarelto (*)) 20 mg PO 1700 [facility] Last Admin: 07/01/16 17:06 Dose: 20 mg Sodium Chloride (Sodium Chloride 0.65% Nasal [place]*) 2 spray BOTH NARES TID [facility] Last Admin: 07/01/16 20:39 Dose: 2 spray Throat Lozenges (Chloraseptic Roman*) 1 roman PO Q6H PRN PRN Reason: SORE THROAT Last Admin: 07/01/16 21:30 Dose: 1 roman Tiotropium [place] (Spiriva Cap.Inh*) 1 cap INH DAILY [facility] Last Admin: 07/02/16 07:16 Dose: Not Given Venlafaxine HCl (Effexor Xr Cap*) 37.5 mg PO QAM [facility] Vital Signs 07/01/16 07/01/16 07/01/16 16:57 19:15 19:44 Temperature 98.4 F Pulse Rate 65 66 Respiratory 24 20 Rate Blood Pressure 133/50 (mmHg) O2 Sat by Pulse 96 99 99 Oximetry 07/01/16 07/01/16 07/01/16 19:45 20:00 20:38 Temperature Pulse Rate 68 Respiratory 20 20 21 Rate Blood Pressure (mmHg) O2 Sat by Pulse 99 Oximetry 07/01/16 07/01/16 07/01/16 21:30 22:38 23:30 Temperature Pulse Rate Respiratory 21 24 24 Rate Blood Pressure (mmHg) O2 Sat by Pulse Oximetry 07/02/16 07/02/16 07/02/16 00:18 00:32 03:14 Temperature 97.2 F 97.2 F Pulse Rate 66 75 Respiratory 24 21 Rate Blood Pressure 93/43 104/40 135/60 (mmHg) O2 Sat by Pulse 100 93 Oximetry 07/02/16 07/02/16 07/02/16 03:30 03:35 03:45 Temperature 97.2 F Pulse Rate 64 64 Respiratory 21 18 Rate Blood Pressure 110/45 100/46 (mmHg) O2 Sat by Pulse 93 96 Oximetry 07/02/16 07/02/16 07/02/16 04:00 05:00 06:00 Temperature 97.9 F Pulse Rate 86 69 64 Respiratory 19 21 19 Rate Blood Pressure 128/47 113/67 118/58 (mmHg) O2 Sat by Pulse 87 96 94 Oximetry 07/02/16 07/02/16 07/02/16 07:00 07:14 08:00 Temperature 98.1 F 97.9 F Pulse Rate 71 8 69 Respiratory 21 20 19 Rate Blood Pressure 107/40 137/49 (mmHg) O2 Sat by Pulse 97 99 99 Oximetry Oxygen Devices in Use Now: High Flow Nasal Cannula - 2 L Appearance: Very stuporous, does not respond to voice or light touch. Head partly up on ICU bed. Occ cough, otherwise looks comfortable. Eyes: No Scleral Icterus Neck: NL Appearance and Movements; NL JVP, No Thyroid Enlargement, Masses Respiratory: Symmetrical Chest Expansion and Respiratory Effort, Clear to Percussion - scattered rales anteriorly, - - abdominal breathing Abdominal: NL Sounds; No Tenderness; No Distention, No Hepatosplenomegaly, - Extremities: No Edema, No Clubbing, Cyanosis, - Skin: No Rash or Ulcers, No Nodules or Sclerosis - Poorly responsive. No tremor. Result Diagrams: 07/02/16 04:55 07/02/16 05:30 Additional Lab and Data: (17:19) Troponin I - 0.07 Microbiology and Other Data: Microbiology 06/30/16 22:07 Nasal Screen MRSA (PCR)(GUANAKITO) - Final Nasal Mrsa Negative Assess/Plan/Problems-Billing Assessment: Ms. Prabhakar is an 85 yo female with PMH significant for CHF, ischemic cardiomyopathy, hyponatremia, and COPD who presented to the emergency room with complaints of shortness of breath and was found to be in new onset Afib with RVR. - Patient Problems (1) Hyponatremia Current Visit: Yes Status: Acute Code(s): E87.1 - HYPO-OSMOLALITY AND HYPONATREMIA SNOMED Code(s): 07410974 Comment: 3% NSS ordered, start with 250 ml. This should raise Na+ by 3. - Further decrease Effexor. (2) Atrial fibrillation with RVR Current Visit: Yes Status: Acute Code(s): I48.91 - UNSPECIFIED ATRIAL FIBRILLATION SNOMED Code(s): 621232294398569 Comment: - Converted to NSR after cardizem in ED - [id number] score 4, Pt's daughter would like to avoid warfarin and use a NOAC -Continue Xarelto if taking po, otherwise may use heparin DVT prophylaxis dosing. - Continue Metolprolol at increased dose if taking po. (3) COPD (chronic obstructive pulmonary disease) Current Visit: No Status: Chronic Code(s): J44.9 - CHRONIC OBSTRUCTIVE PULMONARY DISEASE, UNSPECIFIED SNOMED Code(s): 04848339 Comment: - Chronic hypercarbic respiratory failure - Continue Dulera, spiriva, singulair, budesonide neb and albuterol nebs PRN Trial BIPAP, per request SDM daughter Abril. (4) Hypothyroidism Current Visit: No Status: Chronic Code(s): E03.9 - HYPOTHYROIDISM, UNSPECIFIED SNOMED Code(s): 67117665 Comment: - addon TSH pending 07/02 - Continue levothyroxine. (5) Fibromyalgia Current Visit: No Status: Chronic Code(s): M79.7 - FIBROMYALGIA SNOMED Code(s): 964386854 Comment: Stop pregabalin until LOC improves. (6) Moderate aortic stenosis Current Visit: No Status: Chronic Code(s): I35.0 - NONRHEUMATIC AORTIC ( VALVE) STENOSIS SNOMED Code(s): 17200308 Comment: - Cautious use of diuretics and IVFs Status and Disposition: OBV to Inpatient. Discharge back to [facility] when medically stable, possibly in the morning.
--- NOTE | 2016-07-02 08:43 | PN ---
Progress Note - Progress Note Note: Prognosis, diagnosis, tx discussed with Abril and her . Time spent on patient care 50 minutes.
[2016-07-02 09:05] LABS: TSH (Thyroid Stimulating Horm) 3.22 mcIU/mL (0.34-5.60)
[2016-07-02] MEDS: Betaxolol-S 0.25%* 10 ML BTL BOTH EYES SCH ×2 (09:20→21:54)
[2016-07-02] MEDS: Ferrous Sulfate TAB* 325 MG PO SCH ×2 (09:56→14:54)
[2016-07-02] MEDS: Saline NASAL SPRAY 0.65%* BTL BOTH NARES SCH ×4 (09:57→22:14)
[2016-07-02] MEDS: Metoprolol Succinate XL TAB* 50 MG PO SCH (09:57)
[2016-07-02] MEDS: Montelukast Sodium TAB* 10 MG PO SCH ×2 (09:57→14:54)
[2016-07-02] MEDS: Venlafaxine EXT RELEASE CAP* 37.5 MG PO SCH ×2 (09:57→14:54)
[2016-07-02] MEDS: guaiFENesin ER TAB 600 MG PO SCH ×3 (09:57→21:54)
[2016-07-02] MEDS: Metoprolol Succinate XL TAB* 25 MG PO SCH (14:54)
[2016-07-02 16:19] LABS: BUN/Creatinine Ratio 15.6 (8-20); Calcium 8.6 mg/dL (8.6-10.3); EGFR African American 170.3 (>60); EGFR Non-African American 132.4 (>60); Potassium 3.4 mmol/L (3.5-5.0)
[2016-07-02] MEDS ORDERED: Acetaminophen TAB* 325 MG PO PRN (16:39)
[2016-07-02] MEDS: Rivaroxaban TAB(*) 20 MG TAB PO SCH (16:53)
[2016-07-02] MEDS: Budesonide NEB* 0.25 MG/2 ML NEB.SOLN INH SCH (19:34)
[2016-07-02] MEDS: Atorvastatin* 20 MG TAB PO SCH (21:54)
[2016-07-02] MEDS: Levofloxacin TAB* 500 MG PO SCH (21:54)
[2016-07-02] MEDS: Latanoprost 0.005%* 2.5 ml BTL BOTH EYES SCH (21:55)
[2016-07-02] MEDS: MINOCYCLINE 100 MG PO SCH (21:56)
[2016-07-03] MEDS: Albuterol 2.5 MG/3 ML NEB.SOL* (0.083%) INH SCH ×3 (01:09→13:44)
[2016-07-03 06:05] LABS: BUN/Creatinine Ratio 17.8 (8-20); Calcium 8.6 mg/dL (8.6-10.3); EGFR African American 170.3 (>60); EGFR Non-African American 132.4 (>60); Potassium 3.8 mmol/L (3.5-5.0)
[2016-07-03] MEDS: Omeprazole CAP* 20 MG PO SCH (06:25)
[2016-07-03] MEDS: Levothyroxine TAB* 88 MCG TAB PO SCH (06:25)
[2016-07-03] MEDS: Tiotropium CAP.INH* CAP.INH/18 MCG INH SCH (07:12)
[2016-07-03] MEDS: Mometasone/Formoter 200/5 MDI INH SCH (07:13)
[2016-07-03] MEDS: guaiFENesin ER TAB 600 MG PO SCH (08:46)
[2016-07-03] MEDS: Venlafaxine EXT RELEASE CAP* 37.5 MG PO SCH (08:46)
[2016-07-03] MEDS: Ferrous Sulfate TAB* 325 MG PO SCH (08:46)
[2016-07-03] MEDS: Montelukast Sodium TAB* 10 MG PO SCH (08:46)
[2016-07-03] MEDS: Metoprolol Succinate XL TAB* 25 MG PO SCH (08:46)
[2016-07-03] MEDS: Betaxolol-S 0.25%* 10 ML BTL BOTH EYES SCH (08:47)
[2016-07-03] MEDS: Saline NASAL SPRAY 0.65%* BTL BOTH NARES SCH ×2 (08:47→13:09)
--- NOTE | 2016-07-03 12:21 | DCNOTE ---
Subjective Date of Service: 07/03/16 Interval History: I'm not going today. Dr. Lopez has all my numbers." She offers no medical c/ o. Family History: Unchanged from Admission Social History: Unchanged from Admission Past Medical History: Unchanged from Admission Objective Active Medications: Acetaminophen (Tylenol Tab*) 650 mg PO Q4H PRN PRN Reason: PAIN Albuterol (Ventolin 2.5 Mg/3 Ml Neb.Awa*) 2.5 mg INH Q2H PRN PRN Reason: SOB/WHEEZING Albuterol (Ventolin 2.5 Mg/3 Ml Neb.Awa*) 2.5 mg INH [id number] AWAKE [facility] Last Admin: 07/03/16 07:12 Dose: 2.5 mg Alprazolam (Xanax Tab*) 0.25 mg PO BID PRN PRN Reason: ANXIETY Last Admin: 07/01/16 21:30 Dose: 0.25 mg Atorvastatin Calcium (Lipitor*) 20 mg PO BEDTIME [facility] Last Admin: 07/02/16 21:54 Dose: 20 mg Betaxolol HCl (Betoptic-S 0.25%*) 1 drop BOTH EYES BID [facility] Last Admin: 07/03/16 08:47 Dose: 1 drop Brimonidine Tartrate (Alphagan 0.2%) 1 drop BOTH EYES BID [facility] Last Admin: 07/03/16 08:47 Dose: 1 drop Budesonide (Pulmicort Neb*) 0.25 mg INH BEDTIME [facility] Last Admin: 07/02/16 19:34 Dose: 0.25 mg Cyclobenzaprine HCl (Flexeril Tab*) 5 mg PO BID PRN PRN Reason: PAIN Last Admin: 06/30/16 23:56 Dose: 5 mg Ferrous Sulfate (Ferrous Sulfate Tab*) 325 mg PO DAILY [facility] Last Admin: 07/03/16 08:46 Dose: 325 mg Guaifenesin (Mucinex*) 600 mg PO BID [facility] Last Admin: 07/03/16 08:46 Dose: 600 mg Latanoprost (Xalatan 0.005%*) 1 drop BOTH EYES BEDTIME [facility] Last Admin: 07/02/16 21:55 Dose: 1 drop Levofloxacin (Levaquin Tab*) 500 mg PO BEDTIME [facility] Last Admin: 07/02/16 21:54 Dose: 500 mg Levothyroxine Sodium (Synthroid Tab*) 88 mcg PO DAILY@0600 [facility] Last Admin: 07/03/16 06:25 Dose: 88 mcg Magnesium Hydroxide (Milk Of Magnesia Liq*) 30 ml PO DAILY PRN PRN Reason: CONSTIPATION Metoprolol Succinate (Toprol Xl Tab*) 25 mg PO DAILY [facility] Last Admin: 07/03/16 08:46 Dose: 25 mg Minocycline HCl (Minocycline (Nf)) 200 mg PO BEDTIME [facility] Last Admin: 07/02/16 21:56 Dose: Not Given Mometasone Furoate/Formoterol Fumar (Dulera 200/5 Mdi*) 2 puff INH BID [facility] PRN Reason: Protocol Last Admin: 07/03/16 07:13 Dose: 2 puff Montelukast Sodium (Singulair Tab*) 10 mg PO DAILY [facility] Last Admin: 07/03/16 08:46 Dose: 10 mg Omeprazole (Prilosec Cap*) 20 mg PO DAILY@0600 [facility] Last Admin: 07/03/16 06:25 Dose: 20 mg Ondansetron HCl (Zofran Inj*) 4 mg IV Q6H PRN PRN Reason: NAUSEA Rivaroxaban (Xarelto (*)) 20 mg PO 1700 [facility] Last Admin: 07/02/16 16:53 Dose: 20 mg Sodium Chloride (Sodium Chloride 0.65% Nasal [place]*) 2 spray BOTH NARES TID [facility] Last Admin: 07/03/16 08:47 Dose: Not Given Throat Lozenges (Chloraseptic Roman*) 1 roman PO Q6H PRN PRN Reason: SORE THROAT Last Admin: 07/01/16 21:30 Dose: 1 roman Tiotropium [place] (Spiriva Cap.Inh*) 1 cap INH DAILY [facility] Last Admin: 07/03/16 07:12 Dose: 1 cap Venlafaxine HCl (Effexor Xr Cap*) 37.5 mg PO QAM [facility] Last Admin: 07/03/16 08:46 Dose: 37.5 mg Vital Signs 07/02/16 07/02/16 07/02/16 12:53 13:00 14:00 Temperature 98.8 F 98.8 F Pulse Rate 82 79 59 Respiratory 24 23 Rate Blood Pressure 138/70 127/106 (mmHg) O2 Sat by Pulse 98 98 96 Oximetry 07/02/16 07/02/16 07/02/16 15:00 16:00 17:00 Temperature 98.8 F 99.0 F 99.0 F Pulse Rate 79 86 82 Respiratory 22 24 26 Rate Blood Pressure 127/69 134/61 148/49 (mmHg) O2 Sat by Pulse 97 100 98 Oximetry 07/02/16 07/02/16 07/02/16 18:00 19:00 19:38 Temperature 99.0 F 98.8 F Pulse Rate 80 72 82 Respiratory 26 26 20 Rate Blood Pressure 146/70 138/47 (mmHg) O2 Sat by Pulse 96 95 99 Oximetry 07/02/16 07/02/16 07/02/16 20:00 21:00 22:00 Temperature 98.6 F 98.5 F 98.7 F Pulse Rate 77 73 81 Respiratory 25 25 24 Rate Blood Pressure 125/51 105/36 124/48 (mmHg) O2 Sat by Pulse 97 98 95 Oximetry 07/02/16 07/02/16 07/03/16 23:00 23:02 00:00 Temperature 98.8 F Pulse Rate 77 Respiratory 22 22 19 Rate Blood Pressure 96/35 (mmHg) O2 Sat by Pulse 96 Oximetry 07/03/16 07/03/16 07/03/16 00:07 00:32 01:00 Temperature 98.9 F 98.8 F 98.7 F Pulse Rate 86 80 76 Respiratory 19 18 22 Rate Blood Pressure 115/68 99/51 (mmHg) O2 Sat by Pulse 98 98 98 Oximetry 07/03/16 07/03/16 07/03/16 01:09 01:10 02:00 Temperature 98.8 F 98.5 F Pulse Rate 86 81 73 Respiratory 20 19 23 Rate Blood Pressure 136/58 108/43 (mmHg) O2 Sat by Pulse 96 94 98 Oximetry 07/03/16 07/03/16 07/03/16 03:00 04:00 05:00 Temperature 98.5 F 97.9 F Pulse Rate 76 72 Respiratory 21 20 20 Rate Blood Pressure 123/39 132/45 131/72 (mmHg) O2 Sat by Pulse 99 99 Oximetry 07/03/16 07/03/16 07/03/16 06:00 07:00 07:20 Temperature 98.3 F 98.8 F Pulse Rate 73 84 84 Respiratory 21 23 20 Rate Blood Pressure 134/65 155/62 (mmHg) O2 Sat by Pulse 99 98 98 Oximetry 07/03/16 07/03/16 07/03/16 07:50 08:00 08:39 Temperature 99.0 F Pulse Rate 89 Respiratory 25 26 26 Rate Blood Pressure 138/50 (mmHg) O2 Sat by Pulse 97 Oximetry 07/03/16 07/03/16 07/03/16 09:00 09:45 10:00 Temperature 99.1 F 99.3 F Pulse Rate 80 85 Respiratory 26 23 29 Rate Blood Pressure 143/103 158/69 (mmHg) O2 Sat by Pulse 97 97 Oximetry 07/03/16 07/03/16 07/03/16 10:10 10:50 11:00 Temperature 99.5 F Pulse Rate 83 Respiratory 31 31 19 Rate Blood Pressure 149/73 (mmHg) O2 Sat by Pulse 98 Oximetry 07/03/16 12:00 Temperature 99.3 F Pulse Rate 84 Respiratory 20 Rate Blood Pressure 162/51 (mmHg) O2 Sat by Pulse 97 Oximetry Oxygen Devices in Use Now: Nasal Cannula - 2 L Appearance: Alert, partly up in bed. Neutral affect, poor eye contact. Looks comfortable. Eyes: No Scleral Icterus Ears/Nose/Mouth/Throat: Clear Oropharnyx, Mucous Membranes Moist Neck: NL Appearance and Movements; NL JVP, No Thyroid Enlargement, Masses Respiratory: Symmetrical Chest Expansion and Respiratory Effort, Clear to Auscultation, Clear to Percussion Cardiovascular: NL Sounds; No Murmurs; No JVD, RRR, No Edema, - Abdominal: NL Sounds; No Tenderness; No Distention, No Hepatosplenomegaly, - Extremities: No Edema, No Clubbing, Cyanosis, - - R shoulder in hard shell brace Skin: No Rash or Ulcers, No Nodules or Sclerosis, - Neurological: NL Sensation - Repeats the same phrase in response to most of my statements and questions. She cannot give a reasonable explanation of why she doesn't want to go back to [facility]. Result Diagrams: 07/02/16 04:55 07/03/16 05:10 Additional Lab and Data: (17:19) Troponin I - 0.07 Microbiology and Other Data: Microbiology 06/30/16 22:07 Nasal Screen MRSA (PCR)(GUANAKITO) - Final Nasal Mrsa Negative Assess/Plan/Problems-Billing Assessment: Ms. Prabhakar is an 85 yo female with PMH significant for CHF, ischemic cardiomyopathy, hyponatremia, and COPD who presented to the emergency room with complaints of shortness of breath and was found to be in new onset Afib with RVR. - Patient Problems (1) Hyponatremia Current Visit: Yes Status: Acute Code(s): E87.1 - HYPO-OSMOLALITY AND HYPONATREMIA SNOMED Code(s): 96988603 Comment: Na+ 125 07/03, stable. Needs outpt fup. (2) Atrial fibrillation with RVR Current Visit: Yes Status: Acute Code(s): I48.91 - UNSPECIFIED ATRIAL FIBRILLATION SNOMED Code(s): 582678533223913 Comment: - Converted to NSR after cardizem in ED - [id number] score 4, Pt's daughter would like to avoid warfarin and use a NOAC -Continue Xarelto - Continue Metolprolol XL. (3) COPD (chronic obstructive pulmonary disease) Current Visit: No Status: Chronic Code(s): J44.9 - CHRONIC OBSTRUCTIVE PULMONARY DISEASE, UNSPECIFIED SNOMED Code(s): 67234355 Comment: - Chronic hypercarbic respiratory failure - Continue Dulera, spiriva, singulair, budesonide neb and albuterol nebs PRN Trial BIPAP, per request SDM daughter Abril. (4) Hypothyroidism Current Visit: No Status: Chronic Code(s): E03.9 - HYPOTHYROIDISM, UNSPECIFIED SNOMED Code(s): 67993613 Comment: - addon TSH 3.22 07/02 - Continue levothyroxine. (5) Fibromyalgia Current Visit: No Status: Chronic Code(s): M79.7 - FIBROMYALGIA SNOMED Code(s): 505295210 Comment: Stop pregabalin to avoid sedation. Patient does not c/o pain. (6) Moderate aortic stenosis Current Visit: No Status: Chronic Code(s): I35.0 - NONRHEUMATIC AORTIC ( VALVE) STENOSIS SNOMED Code(s): 58375640 Comment: Hold diuretics as no signs of fluid overload at present. Status and Disposition: Discharge back to [facility].
--- NOTE | 2016-07-03 12:32 | PN ---
Progress Note - Progress Note Note: Time spent on discharge 55 minutes.
[2016-07-03 13:10] VITALS: BP 156/60
--- NOTE | 2016-07-04 06:00 | TRS ---
TRANSFER SUMMARY: DATE OF ADMISSION: 07/01/16 DATE OF TRANSFER: 07/03/16 HOSPITAL COURSE: This 85-year-old woman presented with shortness of breath to the emergency room. She was in atrial fibrillation at a rate of 144. She did not have any palpitations or lightheadedness. In the emergency room, the atrial fibrillation converted to normal sinus rhythm ; however, she was found to have a sodium of 117. She was admitted to the intensive care unit. The following day, her sodium was 116. She was started on hypertonic saline. Her sodium isac to 125 and was the same when repeated on the day of discharge. For a while, she was quite obtunded and on BiPAP. She was hypercarbic, although pH was normal from her compensation by retaining CO2. Her last blood gas on July 02 showed a pCO2 of 84, pH of 7.39, O2 saturation of 98.6%. She was weaned off of BiPAP and over the last 24 hours, she has been doing quite well on 2 L by nasal cannula. She underwent a swallow evaluation on the day of discharge. She was able to tolerate thin liquids and pureed food. The patient's level of consciousness returned to normal; however, on the day of discharge, she was quite irrational and said she was not going back to [facility] today. She really did not have a good reason. She stared at the wall where a sign said that Dr. Lopez was her doctor and Jacy was her nurse. Actually, Jacy was the nurse from the day before. She said, "I'm not going because Dr. Lopez knows my numbers." I explained I was Dr. Lopez, but she kept saying the same phrase over no matter what we asked her or how we explained things. She really did not look me in the eye very much at all and was clearly not making a rational decision. FINAL DIAGNOSES: 1. Chronic obstructive pulmonary disease with hypercarbia. 2. Atrial fibrillation with rapid ventricular response, converted to sinus rhythm. 3. Severe hypernatremia. 4. Hypothyroidism. 5. Fibromyalgia. 6. Moderate aortic stenosis. DISCHARGE MEDICATIONS: 1. Alprazolam 0.25 mg b.i.d. p.r.n. 2. Acetaminophen 650 mg every 4 hours p.r.n. 3. Albuterol 2.5 mg by inhalation as needed. 4. Metoprolol succinate 25 mg daily. 5. Mometasone/formoterol 200/5 two puffs b.i.d. 6. Rivaroxaban 20 mg daily at 5 p.m. 7. Tiotropium 1 capsule daily. 8. Venlafaxine 37.5 mg daily. 9. Levofloxacin 500 mg daily for 4 days. 10. Brimonidine 0.2% one drop both eyes b.i.d. 11. Levothyroxine 88 mcg daily. 12. Aspirin 81 mg daily. CC: Dr. Byrd* [id number]/[facility] #: [id number] [facility]
== END 2016-07-03 14:00 | DRG 641 ==
LOC: ED 16:29 → MEDTELE 19:27 → OBSVTOIN 07-01 15:53 → ICU 07-02 03:28 → UNDODISIN 07-03 14:00
PROVIDERS: ADMIT Hospitalist; ATTEND Internal Medicine
PROC: 5A09357 Assistance with Respiratory Ventilation, Less than 24 Consecutive Hours, Continuous Positive Airway Pressure (ICD-10-PCS; principal; 2016-07-02)
DX: E87.0 Hyperosmolality and hypernatremia (principal); J96.12 Chronic respiratory failure with hypercapnia; I27.2 Other secondary pulmonary hypertension; I50.9 Heart failure, unspecified; I11.0 Hypertensive heart disease with heart failure; S42.301K Unspecified fracture of shaft of humerus, right arm, subsequent encounter for fracture with nonunion; I48.91 Unspecified atrial fibrillation; J44.9 Chronic obstructive pulmonary disease, unspecified; E03.9 Hypothyroidism, unspecified; M79.7 Fibromyalgia; Z79.82 Long term (current) use of aspirin; Z99.81 Dependence on supplemental oxygen; Z88.2 Allergy status to sulfonamides; Z88.0 Allergy status to penicillin; Z88.5 Allergy status to narcotic agent; Z88.8 Allergy status to other drugs, medicaments and biological substances; E78.00 Pure hypercholesterolemia, unspecified; M19.90 Unspecified osteoarthritis, unspecified site; Z99.3 Dependence on wheelchair; F41.9 Anxiety disorder, unspecified; F32.9 Major depressive disorder, single episode, unspecified; Z80.9 Family history of malignant neoplasm, unspecified; I25.5 Ischemic cardiomyopathy; Z98.42 Cataract extraction status, left eye; Z98.41 Cataract extraction status, right eye; Z96.612 Presence of left artificial shoulder joint; Z96.611 Presence of right artificial shoulder joint; Z90.710 Acquired absence of both cervix and uterus; Z87.891 Personal history of nicotine dependence; I08.3 Combined rheumatic disorders of mitral, aortic and tricuspid valves; X58.XXXD Exposure to other specified factors, subsequent encounter; D64.9 Anemia, unspecified; H40.9 Unspecified glaucoma; Z66 Do not resuscitate; G89.29 Other chronic pain; R79.89 Other specified abnormal findings of blood chemistry; T84.59XD Infection and inflammatory reaction due to other internal joint prosthesis, subsequent encounter; Y79.2 Prosthetic and other implants, materials and accessory orthopedic devices associated with adverse incidents
CPT/HCPCS: 36415; 36600; 71010; 71275; 80048; 80053; 81003; 81015; 82550; 82803; 83605; 83880; 83930; 83935; 84300; 84443; 84484; 85025; 85610; 85730; 87040; 87086; 87502; 87641; 93005; 94640; 94660; 94760; A9270-GY; G0378; J1644; J1940; Q9967